=== PATIENT | female | born 1955 | race Caucasian/White ===

== ENCOUNTER 2018-07-10 23:07 | Inpatient (IN) | payer OTHER ==
[2018-07-11] MEDS: ACCU-CHEK XX ×5 (01:00→16:39)
[2018-07-11] MEDS ORDERED: ALBUTEROL/IPRATROPIUM (NEB) 3 ML AMP HHN (01:00)
[2018-07-11] MEDS ORDERED: GLUCOSE GEL 15 GRAM TUBE PO ×2 (01:00)
[2018-07-11] MEDS ORDERED: GLUCAGON 1 MG INJ IM (01:00)
[2018-07-11] MEDS ORDERED: ACETAMINOPHEN 325 MG TAB PO (01:00)
[2018-07-11] MEDS ORDERED: DEXTROSE 50% 50 ML SYRINGE IV ×2 (01:00)
[2018-07-11] MEDS ORDERED: NACL 0.9% 3 ML SYG IV (01:00)
[2018-07-11] MEDS ORDERED: GLUCOSE GEL 15 GRAM TUBE BUCCAL (01:00)
[2018-07-11] MEDS: DEXTROSE 5%-0.45% NACL 1,000 ML IV ×2 (01:12→08:32)
[2018-07-11 01:16] LABS: ADD MAN DIFF? NO
[2018-07-11 01:21] LABS: WHITE BLOOD COUNT 8.7 10^3/ul (4.8-10.8)
[2018-07-11 01:21] LABS: BASOPHILS % 0.5 % (0.0-2.0); EOSINOPHILS # 0.2 10^3/ul (0.0-0.5); EOSINOPHILS % 2.2 % (0.0-7.0); HEMATOCRIT 29.8 % (37.0-47.0); LYMPHOCYTES % 34.7 % (15.0-51.0); MEAN CORPUSCULAR HEMOGLOBIN 30.1 pg (29.0-33.0); MEAN CORPUSCULAR HGB CONC 33.6 g/dl (32.0-37.0); MEAN CORPUSCULAR VOLUME 89.8 fl (82.0-101.0); MEAN PLATELET VOLUME 10.7 fl (7.4-10.4); MONOCYTE # 0.5 10^3/ul (0.3-0.9); MONOCYTES % 6.2 % (0.0-11.0); NEUTROPHIL # 4.9 10^3/ul (1.6-7.5); NEUTROPHILS % 56.1 % (39.0-77.0); PLATELET COUNT 190 10^3/UL (140-415); RED BLOOD COUNT 3.32 10^6/ul (4.20-5.40); RED CELL DISTRIBUTION WIDTH 13.6 % (11.5-14.5)
[2018-07-11] MEDS: INSULIN ASPART [NOVOLOG] 3 ML PEN SC ×6 (01:22→22:35)
[2018-07-11 01:40] LABS: CREATINE KINASE 38 IU/L (23-200)
[2018-07-11 01:44] LABS: ALANINE AMINOTRANSFERASE 28 IU/L (13-69); ALBUMIN 3.8 g/dl (3.3-4.9); ALBUMIN/GLOBULIN RATIO 1.35; ALKALINE PHOSPHATASE 87 IU/L (42-121); ANION GAP 12 (5-13); ASPARTATE AMINO TRANSFERASE 25 IU/L (15-46); BILIRUBIN,INDIRECT 0.7 mg/dl (0-1.1); BILIRUBIN,TOTAL 0.7 mg/dl (0.2-1.3); BLOOD UREA NITROGEN 14 mg/dl (7-20); CALCIUM 9.1 mg/dl (8.4-10.2); CARBON DIOXIDE 27 mmol/L (21-31); CHLORIDE 102 mmol/L (97-110); CREATININE 0.74 mg/dl (0.44-1.00); Estimated GFR > 60 mL/min (>60); GLUCOSE 186 mg/dl (70-220); POTASSIUM 3.7 mmol/L (3.5-5.1); SODIUM 141 mmol/L (135-144); TOTAL PROTEIN 6.6 g/dl (6.1-8.1)
[2018-07-11 01:53] LABS: CK INDEX 0.7; CK-MB 0.26 ng/ml (0.0-2.4); TROPONIN-I 0.093 ng/ml (0.000-0.120)
[2018-07-11] MEDS ORDERED: ACCU-CHEK XX (02:00)
[2018-07-11 02:43] LABS: HEMOGLOBIN A1C 6.9 % (0-5.9)
[2018-07-11 06:55] LABS: CREATINE KINASE 38 IU/L (23-200)
[2018-07-11 07:07] LABS: CK INDEX 0.7; CK-MB 0.28 ng/ml (0.0-2.4); TROPONIN-I 0.084 ng/ml (0.000-0.120)
[2018-07-11] MEDS: ASPIRIN 81 MG TAB PO (08:32)
[2018-07-11] MEDS: ATENOLOL 25 MG TAB PO (08:33)
[2018-07-11] MEDS: ENOXAPARIN 40 MG/0.4 ML SYG SC (08:44)
[2018-07-11] MEDS: ATORVASTATIN 20 MG TAB PO (22:07)
[2018-07-11] MEDS: METOPROLOL 25 MG TAB PO (22:08)
[2018-07-12] MEDS: ACCU-CHEK XX (02:00)
[2018-07-12 07:40] LABS: ADD MAN DIFF? NO
[2018-07-12 07:41] LABS: WHITE BLOOD COUNT 8.2 10^3/ul (4.8-10.8)
[2018-07-12 07:41] LABS: BASOPHILS % 0.4 % (0.0-2.0); EOSINOPHILS # 0.2 10^3/ul (0.0-0.5); EOSINOPHILS % 2.4 % (0.0-7.0); HEMATOCRIT 32.4 % (37.0-47.0); LYMPHOCYTES # 2.6 10^3/ul (0.8-2.9); LYMPHOCYTES % 31.9 % (15.0-51.0); MEAN CORPUSCULAR HEMOGLOBIN 29.9 pg (29.0-33.0); MEAN PLATELET VOLUME 10.9 fl (7.4-10.4); MONOCYTE # 0.5 10^3/ul (0.3-0.9); MONOCYTES % 5.7 % (0.0-11.0); NEUTROPHIL # 4.9 10^3/ul (1.6-7.5); PLATELET COUNT 205 10^3/UL (140-415); RED BLOOD COUNT 3.68 10^6/ul (4.20-5.40); RED CELL DISTRIBUTION WIDTH 13.6 % (11.5-14.5)
[2018-07-12 08:06] LABS: ANION GAP 12 (5-13); BLOOD UREA NITROGEN 13 mg/dl (7-20); CALCIUM 9.5 mg/dl (8.4-10.2); CARBON DIOXIDE 27 mmol/L (21-31); CHLORIDE 103 mmol/L (97-110); CREATININE 0.66 mg/dl (0.44-1.00); Estimated GFR > 60 mL/min (>60); GLUCOSE 155 mg/dl (70-220); MAGNESIUM 2.1 mg/dl (1.7-2.5); PHOSPHORUS 3.9 mg/dl (2.5-4.9); SODIUM 142 mmol/L (135-144)
[2018-07-12 08:09] LABS: CHOLESTEROL 164 mg/dl (100-200)
[2018-07-12 08:09] LABS: CHOL/HDL RATIO 4.2 RATIO; HDL CHOLESTEROL 39 mg/dl (35-98); LDL CHOLESTEROL,CALCULATED 105 mg/dl; TRIGLYCERIDES 101 mg/dl (0-149)
[2018-07-12] MEDS: INSULIN ASPART [NOVOLOG] 3 ML PEN SC ×4 (08:10→21:09)
[2018-07-12] MEDS: METOPROLOL 25 MG TAB PO ×2 (08:39→21:03)
[2018-07-12] MEDS: ASPIRIN 81 MG TAB PO (08:39)
[2018-07-12] MEDS: ENOXAPARIN 40 MG/0.4 ML SYG SC (08:54)
[2018-07-12] MEDS: HYDROCODONE/APAP (5/325) TAB PO (19:52)
[2018-07-12] MEDS: ATORVASTATIN 20 MG TAB PO (21:03)
[2018-07-13] MEDS: ACCU-CHEK XX (02:00)
[2018-07-13 05:53] LABS: ADD MAN DIFF? NO
[2018-07-13 06:03] LABS: WHITE BLOOD COUNT 7.2 10^3/ul (4.8-10.8)
[2018-07-13 06:03] LABS: BASOPHILS % 0.4 % (0.0-2.0); EOSINOPHILS # 0.3 10^3/ul (0.0-0.5); EOSINOPHILS % 3.5 % (0.0-7.0); HEMATOCRIT 31.9 % (37.0-47.0); HEMOGLOBIN 10.6 g/dl (12.0-16.0); LYMPHOCYTES # 2.3 10^3/ul (0.8-2.9); LYMPHOCYTES % 31.1 % (15.0-51.0); MEAN CORPUSCULAR HEMOGLOBIN 29.8 pg (29.0-33.0); MEAN CORPUSCULAR HGB CONC 33.2 g/dl (32.0-37.0); MEAN CORPUSCULAR VOLUME 89.6 fl (82.0-101.0); MEAN PLATELET VOLUME 10.7 fl (7.4-10.4); MONOCYTE # 0.5 10^3/ul (0.3-0.9); MONOCYTES % 6.2 % (0.0-11.0); NEUTROPHIL # 4.2 10^3/ul (1.6-7.5); NEUTROPHILS % 58.4 % (39.0-77.0); PLATELET COUNT 189 10^3/UL (140-415); RED BLOOD COUNT 3.56 10^6/ul (4.20-5.40); RED CELL DISTRIBUTION WIDTH 13.3 % (11.5-14.5)
[2018-07-13 06:29] LABS: ANION GAP 11 (5-13); BLOOD UREA NITROGEN 14 mg/dl (7-20); CALCIUM 8.6 mg/dl (8.4-10.2); CARBON DIOXIDE 27 mmol/L (21-31); CHLORIDE 103 mmol/L (97-110); CREATININE 0.65 mg/dl (0.44-1.00); Estimated GFR > 60 mL/min (>60); GLUCOSE 146 mg/dl (70-220); MAGNESIUM 2.1 mg/dl (1.7-2.5); PHOSPHORUS 3.9 mg/dl (2.5-4.9); POTASSIUM 3.9 mmol/L (3.5-5.1); SODIUM 141 mmol/L (135-144)
[2018-07-13] MEDS: INSULIN ASPART [NOVOLOG] 3 ML PEN SC ×4 (07:50→21:19)
[2018-07-13] MEDS: ASPIRIN 81 MG TAB PO (08:24)
[2018-07-13] MEDS: METOPROLOL 25 MG TAB PO ×2 (08:24→20:23)
[2018-07-13] MEDS: ENOXAPARIN 40 MG/0.4 ML SYG SC (08:27)
[2018-07-13] MEDS: ATORVASTATIN 20 MG TAB PO (20:23)
[2018-07-14] MEDS: ACCU-CHEK XX (02:45)
[2018-07-14 06:24] LABS: ADD MAN DIFF? NO
[2018-07-14 06:31] LABS: WHITE BLOOD COUNT 7.6 10^3/ul (4.8-10.8)
[2018-07-14 06:31] LABS: BASOPHILS % 0.5 % (0.0-2.0); EOSINOPHILS # 0.2 10^3/ul (0.0-0.5); HEMATOCRIT 32.3 % (37.0-47.0); HEMOGLOBIN 10.7 g/dl (12.0-16.0); LYMPHOCYTES # 2.3 10^3/ul (0.8-2.9); LYMPHOCYTES % 29.6 % (15.0-51.0); MEAN CORPUSCULAR HEMOGLOBIN 29.6 pg (29.0-33.0); MEAN CORPUSCULAR HGB CONC 33.1 g/dl (32.0-37.0); MEAN CORPUSCULAR VOLUME 89.2 fl (82.0-101.0); MEAN PLATELET VOLUME 10.7 fl (7.4-10.4); MONOCYTE # 0.5 10^3/ul (0.3-0.9); NEUTROPHIL # 4.6 10^3/ul (1.6-7.5); NEUTROPHILS % 60.4 % (39.0-77.0); PLATELET COUNT 206 10^3/UL (140-415); RED BLOOD COUNT 3.62 10^6/ul (4.20-5.40); RED CELL DISTRIBUTION WIDTH 13.6 % (11.5-14.5)
[2018-07-14 07:01] LABS: ANION GAP 11 (5-13); BLOOD UREA NITROGEN 14 mg/dl (7-20); CARBON DIOXIDE 29 mmol/L (21-31); CHLORIDE 103 mmol/L (97-110); CREATININE 0.61 mg/dl (0.44-1.00); Estimated GFR > 60 mL/min (>60); GLUCOSE 160 mg/dl (70-220); MAGNESIUM 2.2 mg/dl (1.7-2.5); PHOSPHORUS 3.7 mg/dl (2.5-4.9); SODIUM 143 mmol/L (135-144)
[2018-07-14] MEDS: INSULIN ASPART [NOVOLOG] 3 ML PEN SC ×4 (08:00→21:01)
[2018-07-14] MEDS: ASPIRIN 81 MG TAB PO (08:08)
[2018-07-14] MEDS: METOPROLOL 25 MG TAB PO ×2 (08:08→20:49)
[2018-07-14] MEDS: ENOXAPARIN 40 MG/0.4 ML SYG SC (08:18)
[2018-07-14] MEDS: ATORVASTATIN 20 MG TAB PO (20:49)
[2018-07-15] MEDS: ACCU-CHEK XX ×9 (02:30→23:18)
[2018-07-15 04:26] LABS: ADD MAN DIFF? NO
[2018-07-15 04:28] LABS: WHITE BLOOD COUNT 7.7 10^3/ul (4.8-10.8)
[2018-07-15 04:28] LABS: BASOPHILS % 0.4 % (0.0-2.0); EOSINOPHILS # 0.2 10^3/ul (0.0-0.5); HEMATOCRIT 33.3 % (37.0-47.0); LYMPHOCYTES # 2.4 10^3/ul (0.8-2.9); LYMPHOCYTES % 30.7 % (15.0-51.0); MEAN CORPUSCULAR HEMOGLOBIN 29.6 pg (29.0-33.0); MEAN CORPUSCULAR VOLUME 89.5 fl (82.0-101.0); MEAN PLATELET VOLUME 10.3 fl (7.4-10.4); MONOCYTE # 0.5 10^3/ul (0.3-0.9); NEUTROPHIL # 4.6 10^3/ul (1.6-7.5); NEUTROPHILS % 59.5 % (39.0-77.0); PLATELET COUNT 217 10^3/UL (140-415); RED BLOOD COUNT 3.72 10^6/ul (4.20-5.40); RED CELL DISTRIBUTION WIDTH 13.6 % (11.5-14.5)
[2018-07-15 04:30] LABS: PLATELET COUNT 212 10^3/UL (140-415)
[2018-07-15 04:45] LABS: ANION GAP 10 (5-13); BLOOD UREA NITROGEN 15 mg/dl (7-20); CALCIUM 9.6 mg/dl (8.4-10.2); CARBON DIOXIDE 26 mmol/L (21-31); CHLORIDE 105 mmol/L (97-110); CREATININE 0.61 mg/dl (0.44-1.00); Estimated GFR > 60 mL/min (>60); GLUCOSE 164 mg/dl (70-220); PHOSPHORUS 4.1 mg/dl (2.5-4.9); SODIUM 141 mmol/L (135-144)
[2018-07-15 04:55] LABS: INR 0.92; PROTIME 12.5 Sec (11.9-14.9)
[2018-07-15 04:56] LABS: PARTIAL THROMBOPLASTIN TIME 31.2 Sec (23.0-35.0)
[2018-07-15 04:59] LABS: THROMBIN TIME 16.9 SEC (13.8-19.1)
[2018-07-15] MEDS ORDERED: EPINEPHrine 4 MG in DEXTROSE 5% 246 ML IV (07:00)
[2018-07-15] MEDS ORDERED: INSULIN HUMAN REGULAR 100 UNIT in SOD CHLORIDE 0.9% 99 ML IV (07:00)
[2018-07-15] MEDS ORDERED: NITROGLYCERIN 50 MG/D5W 250 ML BTL (07:00)
[2018-07-15] MEDS ORDERED: DOPamine-D5W 1.6 MG/ML 250 ML (07:00)
[2018-07-15] MEDS ORDERED: ISOFLURANE 15 MIN (07:00)
[2018-07-15] MEDS ORDERED: PHENYLephrine 20MG IN 250 ML 250 ML IV (07:30)
[2018-07-15] MEDS ORDERED: MIDAZOLAM 5 ML ×2 (07:41→13:13)
[2018-07-15] MEDS: VANCOMYCIN 1 GM INJ (07:41)
[2018-07-15] MEDS ORDERED: PHENYLephrine (100 MCG/ML) 5ML SYG ×3 (07:44→09:57)
[2018-07-15] MEDS ORDERED: MAGNESIUM SULFATE (MG) 50% 10 ML INJ (07:47)
[2018-07-15] MEDS: HEPARIN 1000 UNITS/ML 10 ML INJ (07:47)
[2018-07-15] MEDS: PAPAVERINE 60 MG INJ (07:47)
[2018-07-15] MEDS ORDERED: POTASSIUM CHLORIDE 40 MEQ INJ (07:47)
[2018-07-15] MEDS ORDERED: LIDOCAINE 100 MG SYRINGE (07:47)
[2018-07-15] MEDS ORDERED: ALBUMIN HUMAN 25% 200 ML (07:48)
[2018-07-15] MEDS ORDERED: AMINOCAPROIC ACID 5 GM INJ (07:48)
[2018-07-15] MEDS ORDERED: CA CHLORIDE 10% 10 ML SYRINGE (07:48)
[2018-07-15] MEDS ORDERED: FUROSEMIDE 20 MG INJ ×2 (07:48→12:12)
[2018-07-15] MEDS ORDERED: MANNITOL 20% 500 ML (07:48)
[2018-07-15] MEDS ORDERED: NA BICARBONATE 8.4% 50 ML SYG (07:49)
[2018-07-15] MEDS ORDERED: PHENYLephrine 10 MG INJ (07:49)
[2018-07-15] MEDS: INSULIN ASPART [NOVOLOG] 3 ML PEN SC ×2 (07:55→11:50)
[2018-07-15] MEDS ORDERED: CEFAZOLIN 1 GM INJ ×2 (08:31→11:15)
[2018-07-15] MEDS ORDERED: HEPARIN 1000 UNITS/ML 10 ML INJ ×2 (08:42→09:11)
[2018-07-15] MEDS: ENOXAPARIN 40 MG/0.4 ML SYG SC (09:00)
[2018-07-15] MEDS: METOPROLOL 25 MG TAB PO ×2 (09:00→21:00)
[2018-07-15] MEDS: ASPIRIN 81 MG TAB PO (09:00)
[2018-07-15] MEDS ORDERED: ALBUMIN HUMAN 5% 0 ML (09:43)
[2018-07-15] MEDS ORDERED: POTASSIUM CHLORIDE 100 ML (09:43)
[2018-07-15] MEDS ORDERED: PROTAMINE 250 MG INJ (11:19)
[2018-07-15 11:42] LABS: IMMEDIATE SPIN CROSSMATCH 1 6
[2018-07-15 11:42] LABS: TYPE AND SCREEN 1
[2018-07-15 11:55] LABS: IMMEDIATE SPIN CROSSMATCH 1
[2018-07-15] MEDS ORDERED: hydrALAzine 20 MG INJ ×2 (12:21→13:48)
[2018-07-15] MEDS ORDERED: LIDOCAINE 2% (SDV) 5 ML INJ (12:29)
[2018-07-15] MEDS ORDERED: ROCURONIUM 50 MG INJ (12:29)
[2018-07-15] MEDS ORDERED: ETOMIDATE 20 MG INJ (12:29)
[2018-07-15] MEDS: NITROGLYCERIN 50 MG/D5W (PMX) 250 ML IV ×3 (14:00→20:25)
[2018-07-15] MEDS ORDERED: DOPamine-D5W 1.6 MG/ML 250 ML IV (14:00)
[2018-07-15] MEDS ORDERED: morphine 10 MG INJ IV ×2 (14:00→14:30)
[2018-07-15] MEDS ORDERED: MEPERIDINE 25 MG INJ IV (14:00)
[2018-07-15] MEDS ORDERED: ONDANSETRON 4 MG INJ IV ×2 (14:00→14:30)
[2018-07-15] MEDS ORDERED: morphine (1 MG/ML) 10ML SYRINGE IV (14:00)
[2018-07-15] MEDS ORDERED: MIDAZOLAM 1 MG/ML 2 ML INJ IV (14:00)
[2018-07-15] MEDS ORDERED: LABETALOL HCL 20MG INJ IV (14:00)
[2018-07-15] MEDS ORDERED: METOCLOPRAMIDE 10 MG INJ IV (14:00)
[2018-07-15] MEDS ORDERED: DIPHENHYDRAMINE 50 MG INJ IV (14:00)
[2018-07-15] MEDS ORDERED: morphine 4 MG/ML VIAL (14:04)
[2018-07-15] MEDS ORDERED: HYDROmorphONE 0.5 MG/0.5 ML SYG IV (14:30)
[2018-07-15] MEDS ORDERED: OXYCODONE/ACETAMINOPHEN (5/325) TAB PO ×2 (14:30)
[2018-07-15] MEDS ORDERED: MAGNESIUM SULFATE 1 GM/D5W 100 ML IVPB (14:30)
[2018-07-15 14:39] LABS: ADD MAN DIFF? NO
[2018-07-15 14:46] LABS: AADO2 Arterial 289.9 mmHg (7.0-24.0); Arterial Base Excess -1.7 mmol/L (-3.0-3); Arterial Blood Gas Oxygen Sat 96.7 mmHG (95.0-98.0); Arterial COHb 0.3 % (0.0-3.0); Arterial HCO3 23.4 mmol/L (22.0-26.0); Arterial MetHb 0.4 % (0.0-1.5); Arterial pCO2 41.1 mmhg (35-45); MODE VENT - AC; Site A-Line
[2018-07-15 14:50] LABS: BASOPHILS % 0.2 % (0.0-2.0); EOSINOPHILS # 0.1 10^3/ul (0.0-0.5); EOSINOPHILS % 0.8 % (0.0-7.0); HEMATOCRIT 35.5 % (37.0-47.0); LYMPHOCYTES # 2.5 10^3/ul (0.8-2.9); LYMPHOCYTES % 25.3 % (15.0-51.0); MEAN CORPUSCULAR HEMOGLOBIN 29.6 pg (29.0-33.0); MEAN CORPUSCULAR HGB CONC 33.8 g/dl (32.0-37.0); MEAN CORPUSCULAR VOLUME 87.7 fl (82.0-101.0); MEAN PLATELET VOLUME 10.5 fl (7.4-10.4); MONOCYTE # 0.6 10^3/ul (0.3-0.9); MONOCYTES % 5.9 % (0.0-11.0); NEUTROPHIL # 6.7 10^3/ul (1.6-7.5); NEUTROPHILS % 66.5 % (39.0-77.0); PLATELET COUNT 147 10^3/UL (140-415); RED BLOOD COUNT 4.05 10^6/ul (4.20-5.40); RED CELL DISTRIBUTION WIDTH 13.8 % (11.5-14.5)
[2018-07-15 14:50] LABS: WHITE BLOOD COUNT 10.1 10^3/ul (4.8-10.8)
[2018-07-15 14:52] LABS: MODE VENT - AC; MetHgb Mixed Venous 0.5 %; Mixed Venous COHb 0.4 %; Mixed Venous Fraction OxyHgb 82.2 %; Mixed Venous Oxygen Sat 82.9 mmHG (65.0-75.0); Mixed Venous Total Hemglobin 13.1 g/dl; Sample Type BLMV; Site OTHER
[2018-07-15 15:03] LABS: INR 1.17; PT RATIO 1.2
[2018-07-15] MEDS: morphine 4 MG/ML VIAL IV (15:03)
[2018-07-15 15:04] LABS: PARTIAL THROMBOPLASTIN TIME 28.9 Sec (23.0-35.0)
[2018-07-15] MEDS: morphine (1 MG/ML) 10ML SYRINGE IV ×2 (15:07→17:10)
[2018-07-15 15:12] LABS: ANION GAP 13 (5-13); BLOOD UREA NITROGEN 12 mg/dl (7-20); CALCIUM 9.1 mg/dl (8.4-10.2); CARBON DIOXIDE 22 mmol/L (21-31); CHLORIDE 111 mmol/L (97-110); CREATININE 0.68 mg/dl (0.44-1.00); Estimated GFR > 60 mL/min (>60); GLUCOSE 176 mg/dl (70-220); MAGNESIUM 3.4 mg/dl (1.7-2.5); POTASSIUM 3.2 mmol/L (3.5-5.1); SODIUM 146 mmol/L (135-144)
[2018-07-15] MEDS: HYDROmorphONE 0.5 MG/0.5 ML SYG IV ×3 (15:28→20:20)
[2018-07-15] MEDS: POTASSIUM CHLORIDE 50 ML IVPB ×5 (15:33→23:38)
[2018-07-15] MEDS ORDERED: DEXTROSE 50% 50 ML SYRINGE IV ×2 (16:00)
[2018-07-15] MEDS: INSULIN HUMAN REGULAR 100 UNIT in SOD CHLORIDE 0.9% 99 ML IV (16:12)
[2018-07-15] MEDS: hydrALAzine 20 MG INJ IV (16:34)
[2018-07-15] MEDS: POTASSIUM CHLORIDE 40 MEQ, CALCIUM CHLORIDE 10% 1 GM in DEXTROSE 5%-0.225% NACL 1,000 ML IV (17:50)
[2018-07-15] MEDS: FAMOTIDINE 20 MG INJ IV (20:01)
[2018-07-15] MEDS: ATORVASTATIN 40 MG TAB PO (21:00)
[2018-07-15 21:31] LABS: AADO2 Arterial 81.6 mmHg (7.0-24.0); Arterial Base Excess -2.9 mmol/L (-3.0-3); Arterial Blood Gas Oxygen Sat 95.9 mmHG (95.0-98.0); Arterial COHb 0.3 % (0.0-3.0); Arterial Fraction of Oxyhgb 95.1 % (93.0-99.0); Arterial HCO3 21.9 mmol/L (22.0-26.0); Arterial MetHb 0.5 % (0.0-1.5); Arterial pCO2 38.3 mmhg (35-45); Blood Gas PS 10; MODE VENT - CPAP; Site A-Line
[2018-07-15 21:50] LABS: PHOSPHORUS 1.6 mg/dl (2.5-4.9)
[2018-07-15 21:50] LABS: ANION GAP 9 (5-13); BLOOD UREA NITROGEN 14 mg/dl (7-20); CALCIUM 9.2 mg/dl (8.4-10.2); CARBON DIOXIDE 25 mmol/L (21-31); CHLORIDE 112 mmol/L (97-110); CREATININE 0.76 mg/dl (0.44-1.00); Estimated GFR > 60 mL/min (>60); GLUCOSE 216 mg/dl (70-220); MAGNESIUM 2.8 mg/dl (1.7-2.5); POTASSIUM 3.6 mmol/L (3.5-5.1); SODIUM 146 mmol/L (135-144)
[2018-07-15] MEDS ORDERED: ACETAMINOPHEN 650 MG SUPP PR (23:23)
[2018-07-15] MEDS: ACETAMINOPHEN 650 MG SUPP PR (23:25)
[2018-07-15 23:35] LABS: ADD UMIC YES; UR ASCORBIC ACID NEGATIVE (NEGATIVE); UR BILIRUBIN (Dip) NEGATIVE (NEGATIVE); UR BLOOD (Dip) 1+ mg/dL (NEGATIVE); UR CLARITY CLEAR (CLEAR); UR COLOR YELLOW (YELLOW); UR GLUCOSE (Dip) NEGATIVE (NEGATIVE); UR KETONES (Dip) NEGATIVE (NEGATIVE); UR LEUKOCYTE ESTERASE (Dip) TRACE Leu/ul (NEGATIVE); UR MUCUS FEW /HPF (NONE SEEN); UR NITRITE (Dip) NEGATIVE (NEGATIVE); UR RBC 2 /HPF (0-5); UR SPECIFIC GRAVITY (Dip) 1.019 (1.003-1.030); UR TOTAL PROTEIN (Dip) NEGATIVE (NEGATIVE); UR UROBILINOGEN (Dip) NEGATIVE (NEGATIVE); UR WBC 21 /HPF (0-5)
[2018-07-15 23:46] LABS: LACTIC ACID 2.3 mmol/L (0.5-2.0)
[2018-07-16] MEDS: ACCU-CHEK XX ×25 (00:08→23:13)
[2018-07-16] MEDS ORDERED: VANCOMYCIN IV PER PHARMACY XX (01:00)
[2018-07-16] MEDS: POTASSIUM CHLORIDE 50 ML IVPB (01:18)
[2018-07-16] MEDS: PIPER-TAZO 3.375 GM IV (PMX) 100 ML IVPB ×5 (01:25→23:25)
[2018-07-16] MEDS: INSULIN HUMAN REGULAR 100 UNIT in SOD CHLORIDE 0.9% 99 ML IV ×3 (03:59→20:19)
[2018-07-16] MEDS: VANCOMYCIN 1.5 GM in SOD CHLORIDE 0.9% 250 ML IVPB (04:03)
[2018-07-16] MEDS: ONDANSETRON 4 MG INJ IV ×3 (04:38→15:48)
[2018-07-16] MEDS: HYDROmorphONE 0.5 MG/0.5 ML SYG IV ×4 (04:39→18:45)
[2018-07-16 05:14] LABS: ADD MAN DIFF? NO
[2018-07-16 05:15] LABS: WHITE BLOOD COUNT 10.7 10^3/ul (4.8-10.8)
[2018-07-16 05:15] LABS: BASOPHILS % 0.3 % (0.0-2.0); EOSINOPHILS % 0.1 % (0.0-7.0); HEMATOCRIT 32.5 % (37.0-47.0); HEMOGLOBIN 10.9 g/dl (12.0-16.0); LYMPHOCYTES # 0.7 10^3/ul (0.8-2.9); LYMPHOCYTES % 6.4 % (15.0-51.0); MEAN CORPUSCULAR HEMOGLOBIN 29.9 pg (29.0-33.0); MEAN CORPUSCULAR HGB CONC 33.5 g/dl (32.0-37.0); MEAN CORPUSCULAR VOLUME 89.3 fl (82.0-101.0); MEAN PLATELET VOLUME 10.8 fl (7.4-10.4); MONOCYTES % 9.5 % (0.0-11.0); NEUTROPHIL # 8.9 10^3/ul (1.6-7.5); PLATELET COUNT 195 10^3/UL (140-415); RED BLOOD COUNT 3.64 10^6/ul (4.20-5.40); RED CELL DISTRIBUTION WIDTH 14.8 % (11.5-14.5)
[2018-07-16 05:39] LABS: LACTIC ACID 1.7 mmol/L (0.5-2.0)
[2018-07-16] MEDS: NITROGLYCERIN 50 MG/D5W (PMX) 250 ML IV (05:49)
[2018-07-16 05:50] LABS: ANION GAP 11 (5-13); BLOOD UREA NITROGEN 13 mg/dl (7-20); CALCIUM 9.5 mg/dl (8.4-10.2); CARBON DIOXIDE 26 mmol/L (21-31); CHLORIDE 112 mmol/L (97-110); CREATININE 0.78 mg/dl (0.44-1.00); Estimated GFR > 60 mL/min (>60); GLUCOSE 155 mg/dl (70-220); MAGNESIUM 2.4 mg/dl (1.7-2.5); POTASSIUM 5.1 mmol/L (3.5-5.1); SODIUM 149 mmol/L (135-144)
[2018-07-16 05:53] LABS: INR 1.03; PROTIME 13.6 Sec (11.9-14.9); PT RATIO 1.1
[2018-07-16] MEDS: FAMOTIDINE 20 MG INJ IV ×2 (08:22→20:17)
[2018-07-16] MEDS: ASPIRIN 325 MG TAB PO (08:44)
[2018-07-16] MEDS: METOPROLOL 25 MG TAB PO ×3 (08:45→21:14)
[2018-07-16] MEDS: ENOXAPARIN 40 MG/0.4 ML SYG SC (09:54)
[2018-07-16] MEDS: HYDROCODONE/APAP (5/325) TAB PO (10:30)
[2018-07-16] MEDS: POTASSIUM CHLORIDE 40 MEQ, CALCIUM CHLORIDE 10% 1 GM in DEXTROSE 5%-0.225% NACL 1,000 ML IV (12:28)
[2018-07-16 14:18] LABS: HEMATOCRIT 30.5 % (37.0-47.0)
[2018-07-16] MEDS: FUROSEMIDE 20 MG INJ IV (14:52)
[2018-07-16] MEDS: LORAZEPAM 2 MG INJ IV (15:00)
[2018-07-16] MEDS: VANCOMYCIN 750 MG (PMX) 250 ML IVPB (16:29)
[2018-07-16] MEDS: LORAZEPAM 4 MG/ML VIAL IV (16:45)
[2018-07-16] MEDS: ATORVASTATIN 40 MG TAB PO (21:14)
[2018-07-17] MEDS: ACCU-CHEK XX ×16 (00:35→14:15)
[2018-07-17] MEDS: HYDROmorphONE 0.5 MG/0.5 ML SYG IV ×3 (00:35→20:00)
[2018-07-17] MEDS: ALBUMIN HUMAN 5% 250 ML IV (02:35)
[2018-07-17] MEDS: POTASSIUM CHLORIDE 40 MEQ, CALCIUM CHLORIDE 10% 1 GM in DEXTROSE 5%-0.225% NACL 1,000 ML IV ×2 (02:37→13:28)
[2018-07-17] MEDS: VANCOMYCIN 750 MG (PMX) 250 ML IVPB ×2 (04:14→17:02)
[2018-07-17 05:09] LABS: ADD MAN DIFF? NO
[2018-07-17 05:18] LABS: WHITE BLOOD COUNT 12.6 10^3/ul (4.8-10.8)
[2018-07-17 05:18] LABS: BASOPHILS % 0.2 % (0.0-2.0); EOSINOPHILS % 0.1 % (0.0-7.0); HEMATOCRIT 29.5 % (37.0-47.0); HEMOGLOBIN 9.7 g/dl (12.0-16.0); LYMPHOCYTES # 1.5 10^3/ul (0.8-2.9); LYMPHOCYTES % 12.2 % (15.0-51.0); MEAN CORPUSCULAR HGB CONC 32.9 g/dl (32.0-37.0); MEAN CORPUSCULAR VOLUME 91.3 fl (82.0-101.0); MONOCYTE # 1.1 10^3/ul (0.3-0.9); MONOCYTES % 8.7 % (0.0-11.0); NEUTROPHIL # 9.9 10^3/ul (1.6-7.5); NEUTROPHILS % 78.2 % (39.0-77.0); PLATELET COUNT 179 10^3/UL (140-415); RED BLOOD COUNT 3.23 10^6/ul (4.20-5.40); RED CELL DISTRIBUTION WIDTH 15.5 % (11.5-14.5)
[2018-07-17 05:32] LABS: ANION GAP 7 (5-13); BLOOD UREA NITROGEN 17 mg/dl (7-20); CALCIUM 9.6 mg/dl (8.4-10.2); CARBON DIOXIDE 27 mmol/L (21-31); CHLORIDE 108 mmol/L (97-110); CREATININE 0.86 mg/dl (0.44-1.00); GLUCOSE 129 mg/dl (70-220); MAGNESIUM 2.2 mg/dl (1.7-2.5); PHOSPHORUS 5.4 mg/dl (2.5-4.9); POTASSIUM 4.3 mmol/L (3.5-5.1); SODIUM 142 mmol/L (135-144)
[2018-07-17] MEDS: PIPER-TAZO 3.375 GM IV (PMX) 100 ML IVPB ×3 (05:55→18:57)
[2018-07-17] MEDS: METOPROLOL 25 MG TAB PO ×2 (05:56→14:16)
[2018-07-17] MEDS: FAMOTIDINE 20 MG INJ IV ×2 (08:22→21:08)
[2018-07-17] MEDS: ASPIRIN 81 MG TAB PO (10:15)
[2018-07-17] MEDS: ENOXAPARIN 40 MG/0.4 ML SYG SC (10:18)
[2018-07-17 15:38] LABS: VANCOMYCIN,TROUGH 12.3 ug/ml (10.0-20.0)
[2018-07-17] MEDS: INSULIN GLARGINE [LANTus] (100 UNITS/ML) SYG SC (16:39)
[2018-07-17] MEDS: INSULIN ASPART [NOVOLOG] 3 ML PEN SC ×2 (17:03→21:00)
[2018-07-17] MEDS: ONDANSETRON 4 MG INJ IV (19:52)
[2018-07-17] MEDS: FUROSEMIDE 20 MG INJ IV (22:27)
[2018-07-17] MEDS: ATORVASTATIN 40 MG TAB PO (22:36)
[2018-07-17] MEDS: METOPROLOL 50 MG TAB PO (22:39)
[2018-07-18] MEDS: PIPER-TAZO 3.375 GM IV (PMX) 100 ML IVPB ×5 (00:21→23:07)
[2018-07-18] MEDS: LORAZEPAM 2 MG INJ IV (02:13)
[2018-07-18] MEDS: LORAZEPAM 4 MG/ML VIAL IV ×2 (02:49→06:39)
[2018-07-18] MEDS: VANCOMYCIN 750 MG (PMX) 250 ML IVPB ×2 (04:07→17:15)
[2018-07-18] MEDS: FUROSEMIDE 20 MG INJ IV ×2 (05:54→14:36)
[2018-07-18] MEDS: METOPROLOL 50 MG TAB PO ×3 (05:55→21:35)
[2018-07-18] MEDS ORDERED: LORAZEPAM 4 MG/ML VIAL IM (06:30)
[2018-07-18] MEDS: INSULIN ASPART [NOVOLOG] 3 ML PEN SC ×4 (08:08→21:30)
[2018-07-18] MEDS: ASPIRIN 81 MG TAB PO (08:14)
[2018-07-18] MEDS: ENOXAPARIN 40 MG/0.4 ML SYG SC (08:19)
[2018-07-18] MEDS: FAMOTIDINE 20 MG INJ IV ×2 (08:39→23:07)
[2018-07-18] MEDS: HYDROmorphONE 0.5 MG/0.5 ML SYG IV (08:40)
[2018-07-18 09:38] LABS: ADD MAN DIFF? NO
[2018-07-18 09:47] LABS: BASOPHILS % 0.3 % (0.0-2.0); EOSINOPHILS % 0.1 % (0.0-7.0); HEMATOCRIT 28.2 % (37.0-47.0); HEMOGLOBIN 9.1 g/dl (12.0-16.0); LYMPHOCYTES # 1.4 10^3/ul (0.8-2.9); LYMPHOCYTES % 13.6 % (15.0-51.0); MEAN CORPUSCULAR HEMOGLOBIN 29.4 pg (29.0-33.0); MEAN CORPUSCULAR HGB CONC 32.3 g/dl (32.0-37.0); MEAN PLATELET VOLUME 10.2 fl (7.4-10.4); MONOCYTE # 0.8 10^3/ul (0.3-0.9); MONOCYTES % 7.8 % (0.0-11.0); NEUTROPHIL # 8.2 10^3/ul (1.6-7.5); NEUTROPHILS % 77.4 % (39.0-77.0); PLATELET COUNT 162 10^3/UL (140-415); RED CELL DISTRIBUTION WIDTH 14.6 % (11.5-14.5)
[2018-07-18 09:47] LABS: WHITE BLOOD COUNT 10.6 10^3/ul (4.8-10.8)
[2018-07-18 10:07] LABS: ALBUMIN 3.6 g/dl (3.3-4.9); ANION GAP 10 (5-13); BLOOD UREA NITROGEN 20 mg/dl (7-20); CALCIUM 9.5 mg/dl (8.4-10.2); CARBON DIOXIDE 26 mmol/L (21-31); CHLORIDE 106 mmol/L (97-110); CREATININE 0.93 mg/dl (0.44-1.00); GLUCOSE 184 mg/dl (70-220); MAGNESIUM 1.9 mg/dl (1.7-2.5); PHOSPHORUS 5.1 mg/dl (2.5-4.9); POTASSIUM 3.4 mmol/L (3.5-5.1); SODIUM 142 mmol/L (135-144)
[2018-07-18] MEDS: ACETAMINOPHEN 650MG/20.3ML CUP NGT ×2 (14:40→20:16)
[2018-07-18] MEDS: POTASSIUM CHLORIDE 40 MEQ, CALCIUM CHLORIDE 10% 1 GM in DEXTROSE 5%-0.225% NACL 1,000 ML IV (14:51)
[2018-07-18] MEDS: POTASSIUM CHLORIDE 50 ML IVPB (15:57)
[2018-07-18] MEDS: FUROSEMIDE 40 MG INJ IV (18:08)
[2018-07-18] MEDS: MAGNESIUM SULFATE 1 GM/D5W 100 ML IVPB (20:50)
[2018-07-18] MEDS: INSULIN GLARGINE [LANTus] (100 UNITS/ML) SYG SC (21:30)
[2018-07-18] MEDS: ATORVASTATIN 40 MG TAB PO (21:35)
[2018-07-18] MEDS: QUETIAPINE 25 MG TAB PO (21:36)
[2018-07-19] MEDS: POTASSIUM CHLORIDE 50 ML IVPB ×3 (00:11→06:25)
[2018-07-19] MEDS: VANCOMYCIN 750 MG (PMX) 250 ML IVPB (03:17)
[2018-07-19 04:57] LABS: ADD MAN DIFF? NO
[2018-07-19 05:00] LABS: BASOPHILS % 0.5 % (0.0-2.0); EOSINOPHILS # 0.1 10^3/ul (0.0-0.5); EOSINOPHILS % 0.8 % (0.0-7.0); HEMATOCRIT 28.2 % (37.0-47.0); HEMOGLOBIN 9.3 g/dl (12.0-16.0); LYMPHOCYTES # 1.8 10^3/ul (0.8-2.9); MEAN CORPUSCULAR HEMOGLOBIN 29.5 pg (29.0-33.0); MEAN CORPUSCULAR VOLUME 89.5 fl (82.0-101.0); MEAN PLATELET VOLUME 10.6 fl (7.4-10.4); MONOCYTE # 0.8 10^3/ul (0.3-0.9); MONOCYTES % 8.5 % (0.0-11.0); NEUTROPHIL # 6.1 10^3/ul (1.6-7.5); NEUTROPHILS % 69.6 % (39.0-77.0); PLATELET COUNT 185 10^3/UL (140-415); RED BLOOD COUNT 3.15 10^6/ul (4.20-5.40); RED CELL DISTRIBUTION WIDTH 14.3 % (11.5-14.5)
[2018-07-19 05:00] LABS: WHITE BLOOD COUNT 8.8 10^3/ul (4.8-10.8)
[2018-07-19 05:21] LABS: MAGNESIUM 2.2 mg/dl (1.7-2.5)
[2018-07-19 05:26] LABS: ALBUMIN 3.3 g/dl (3.3-4.9); ANION GAP 12 (5-13); BLOOD UREA NITROGEN 18 mg/dl (7-20); CALCIUM 9.4 mg/dl (8.4-10.2); CARBON DIOXIDE 29 mmol/L (21-31); CHLORIDE 104 mmol/L (97-110); CREATININE 0.84 mg/dl (0.44-1.00); GLUCOSE 150 mg/dl (70-220); PHOSPHORUS 4.4 mg/dl (2.5-4.9); POTASSIUM 3.4 mmol/L (3.5-5.1); SODIUM 145 mmol/L (135-144)
[2018-07-19] MEDS: FUROSEMIDE 40 MG INJ IV ×2 (05:45→17:29)
[2018-07-19] MEDS: PIPER-TAZO 3.375 GM IV (PMX) 100 ML IVPB ×3 (05:45→17:29)
[2018-07-19] MEDS: METOPROLOL 50 MG TAB PO ×3 (05:46→22:51)
[2018-07-19] MEDS: FAMOTIDINE 20 MG INJ IV ×2 (09:24→21:25)
[2018-07-19] MEDS: POTASSIUM CHLORIDE (SR) 20 MEQ TAB PO ×2 (09:24→23:51)
[2018-07-19] MEDS: ASPIRIN 81 MG TAB PO (09:25)
[2018-07-19] MEDS: INSULIN ASPART [NOVOLOG] 3 ML PEN SC ×4 (09:26→21:32)
[2018-07-19] MEDS: ENOXAPARIN 40 MG/0.4 ML SYG SC (09:26)
[2018-07-19] MEDS ORDERED: hydrOXYzine HCL 10 MG TAB PO (09:30)
[2018-07-19] MEDS ORDERED: morphine 2 MG INJ IV (09:30)
[2018-07-19] MEDS: traMADol 50 MG TAB PO (10:33)
[2018-07-19] MEDS: QUETIAPINE 25 MG TAB PO ×2 (21:00→21:25)
[2018-07-19] MEDS: ATORVASTATIN 40 MG TAB PO (21:25)
[2018-07-19] MEDS: INSULIN GLARGINE [LANTus] (100 UNITS/ML) SYG SC (21:27)
[2018-07-19] MEDS: ACETAMINOPHEN 325 MG TAB PO (21:42)
[2018-07-19] MEDS ORDERED: AMIODARONE 900 MG in DEXTROSE 5% 482 ML IV (23:30)
[2018-07-19] MEDS ORDERED: AMIODARONE 150MG/D5W BOLUS 100 ML IV (23:30)
[2018-07-20] MEDS: PIPER-TAZO 3.375 GM IV (PMX) 100 ML IVPB ×5 (00:02→23:25)
[2018-07-20] MEDS: AMIODARONE 200 MG TAB PO ×4 (00:03→20:53)
[2018-07-20] MEDS: FUROSEMIDE 40 MG INJ IV ×2 (05:50→17:02)
[2018-07-20] MEDS: METOPROLOL 50 MG TAB PO ×3 (05:51→23:26)
[2018-07-20 06:06] LABS: ADD MAN DIFF? NO
[2018-07-20 06:16] LABS: WHITE BLOOD COUNT 8.5 10^3/ul (4.8-10.8)
[2018-07-20 06:16] LABS: BASOPHIL # 0.1 10^3/ul (0.0-0.1); BASOPHILS % 0.7 % (0.0-2.0); EOSINOPHILS # 0.2 10^3/ul (0.0-0.5); HEMATOCRIT 29.7 % (37.0-47.0); HEMOGLOBIN 9.8 g/dl (12.0-16.0); LYMPHOCYTES # 2.3 10^3/ul (0.8-2.9); LYMPHOCYTES % 27.2 % (15.0-51.0); MEAN CORPUSCULAR HEMOGLOBIN 29.6 pg (29.0-33.0); MEAN CORPUSCULAR VOLUME 89.7 fl (82.0-101.0); MEAN PLATELET VOLUME 10.8 fl (7.4-10.4); MONOCYTE # 0.9 10^3/ul (0.3-0.9); MONOCYTES % 10.2 % (0.0-11.0); NEUTROPHIL # 5.1 10^3/ul (1.6-7.5); NEUTROPHILS % 59.5 % (39.0-77.0); PLATELET COUNT 236 10^3/UL (140-415); RED BLOOD COUNT 3.31 10^6/ul (4.20-5.40)
[2018-07-20 06:45] LABS: ALBUMIN 3.6 g/dl (3.3-4.9); ANION GAP 10 (5-13); BLOOD UREA NITROGEN 17 mg/dl (7-20); CALCIUM 9.3 mg/dl (8.4-10.2); CARBON DIOXIDE 34 mmol/L (21-31); CHLORIDE 99 mmol/L (97-110); CREATININE 0.92 mg/dl (0.44-1.00); GLUCOSE 119 mg/dl (70-220); MAGNESIUM 1.9 mg/dl (1.7-2.5); PHOSPHORUS 4.9 mg/dl (2.5-4.9); POTASSIUM 3.7 mmol/L (3.5-5.1); SODIUM 143 mmol/L (135-144)
[2018-07-20] MEDS: INSULIN ASPART [NOVOLOG] 3 ML PEN SC ×4 (08:00→20:53)
[2018-07-20] MEDS: FAMOTIDINE 20 MG INJ IV ×2 (08:52→20:52)
[2018-07-20] MEDS: ASPIRIN 81 MG TAB PO (08:53)
[2018-07-20] MEDS: POTASSIUM CHLORIDE (SR) 20 MEQ TAB PO ×2 (08:53→11:39)
[2018-07-20] MEDS: ENOXAPARIN 40 MG/0.4 ML SYG SC (09:02)
[2018-07-20] MEDS: MEGESTROL 40 MG TAB PO ×4 (12:19→20:52)
[2018-07-20] MEDS: MAGNESIUM SULFATE 1 GM/D5W 100 ML IVPB (12:20)
[2018-07-20] MEDS: ACETAMINOPHEN 325 MG TAB PO ×2 (18:59→20:27)
[2018-07-20] MEDS: ATORVASTATIN 40 MG TAB PO (20:52)
[2018-07-20] MEDS: INSULIN GLARGINE [LANTus] (100 UNITS/ML) SYG SC (21:08)
[2018-07-21] MEDS: NITROGLYCERIN (SL) 0.4 MG TAB SL (01:19)
[2018-07-21 05:25] LABS: ADD MAN DIFF? NO
[2018-07-21] MEDS: PIPER-TAZO 3.375 GM IV (PMX) 100 ML IVPB ×4 (05:26→23:53)
[2018-07-21] MEDS: FUROSEMIDE 40 MG INJ IV (05:26)
[2018-07-21] MEDS: METOPROLOL 50 MG TAB PO ×3 (05:26→22:22)
[2018-07-21 05:33] LABS: WHITE BLOOD COUNT 9.9 10^3/ul (4.8-10.8)
[2018-07-21 05:33] LABS: BASOPHIL # 0.1 10^3/ul (0.0-0.1); BASOPHILS % 0.5 % (0.0-2.0); EOSINOPHILS # 0.2 10^3/ul (0.0-0.5); EOSINOPHILS % 1.6 % (0.0-7.0); HEMATOCRIT 33.7 % (37.0-47.0); HEMOGLOBIN 10.9 g/dl (12.0-16.0); LYMPHOCYTES # 2.5 10^3/ul (0.8-2.9); LYMPHOCYTES % 25.5 % (15.0-51.0); MEAN CORPUSCULAR HEMOGLOBIN 29.3 pg (29.0-33.0); MEAN CORPUSCULAR HGB CONC 32.3 g/dl (32.0-37.0); MEAN CORPUSCULAR VOLUME 90.6 fl (82.0-101.0); MEAN PLATELET VOLUME 10.7 fl (7.4-10.4); MONOCYTE # 0.9 10^3/ul (0.3-0.9); MONOCYTES % 9.2 % (0.0-11.0); NEUTROPHIL # 6.2 10^3/ul (1.6-7.5); NEUTROPHILS % 62.6 % (39.0-77.0); PLATELET COUNT 274 10^3/UL (140-415); RED BLOOD COUNT 3.72 10^6/ul (4.20-5.40); RED CELL DISTRIBUTION WIDTH 13.8 % (11.5-14.5)
[2018-07-21 06:00] LABS: ALBUMIN 3.8 g/dl (3.3-4.9); ANION GAP 10 (5-13); BLOOD UREA NITROGEN 19 mg/dl (7-20); CALCIUM 9.4 mg/dl (8.4-10.2); CARBON DIOXIDE 34 mmol/L (21-31); CHLORIDE 98 mmol/L (97-110); CREATININE 1.05 mg/dl (0.44-1.00); GLUCOSE 130 mg/dl (70-220); MAGNESIUM 2.3 mg/dl (1.7-2.5); PHOSPHORUS 4.6 mg/dl (2.5-4.9); POTASSIUM 3.2 mmol/L (3.5-5.1); SODIUM 142 mmol/L (135-144)
[2018-07-21 06:58] LABS: ANION GAP 11 (5-13); BLOOD UREA NITROGEN 19 mg/dl (7-20); CALCIUM 9.8 mg/dl (8.4-10.2); CARBON DIOXIDE 33 mmol/L (21-31); CHLORIDE 97 mmol/L (97-110); CREATININE 1.03 mg/dl (0.44-1.00); Estimated GFR 54 mL/min (>60); GLUCOSE 134 mg/dl (70-220); POTASSIUM 3.1 mmol/L (3.5-5.1); SODIUM 141 mmol/L (135-144)
[2018-07-21] MEDS ORDERED: POTASSIUM BICARBONATE 25 MEQ TAB PO (07:30)
[2018-07-21] MEDS: POTASSIUM CHLORIDE (SR) 20 MEQ TAB PO ×2 (07:36→14:09)
[2018-07-21] MEDS: INSULIN ASPART [NOVOLOG] 3 ML PEN SC ×4 (07:45→20:16)
[2018-07-21] MEDS: ASPIRIN 81 MG TAB PO (08:13)
[2018-07-21] MEDS: FAMOTIDINE 20 MG INJ IV ×2 (08:13→20:13)
[2018-07-21] MEDS: MEGESTROL 40 MG TAB PO ×4 (08:13→22:21)
[2018-07-21] MEDS: AMIODARONE 200 MG TAB PO ×3 (08:14→20:13)
[2018-07-21] MEDS: ENOXAPARIN 40 MG/0.4 ML SYG SC (08:34)
[2018-07-21] MEDS: D5W-0.45 NACL + KCL 20 MEQ 1,000 ML IV (09:20)
[2018-07-21] MEDS: ACETAMINOPHEN 325 MG TAB PO ×2 (10:37→22:22)
[2018-07-21] MEDS: MAGNESIUM SULFATE 2 GM/50 ML 50 ML IVPB (14:10)
[2018-07-21] MEDS: BUMETANIDE 3 MG in DEXTROSE 5% 18 ML IV (14:10)
[2018-07-21] MEDS: LACTOBACILLUS RHAMNOSUS CAP PO (19:43)
[2018-07-21] MEDS: ATORVASTATIN 40 MG TAB PO (20:08)
[2018-07-21] MEDS: INSULIN GLARGINE [LANTus] (100 UNITS/ML) SYG SC (20:23)
[2018-07-22] MEDS: traZODone 50 MG TAB PO (02:30)
[2018-07-22 05:35] LABS: ADD MAN DIFF? NO
[2018-07-22 05:44] LABS: BASOPHIL # 0.1 10^3/ul (0.0-0.1); BASOPHILS % 0.4 % (0.0-2.0); EOSINOPHILS # 0.2 10^3/ul (0.0-0.5); EOSINOPHILS % 1.4 % (0.0-7.0); HEMATOCRIT 33.9 % (37.0-47.0); HEMOGLOBIN 11.4 g/dl (12.0-16.0); LYMPHOCYTES # 2.4 10^3/ul (0.8-2.9); MEAN CORPUSCULAR HEMOGLOBIN 29.8 pg (29.0-33.0); MEAN CORPUSCULAR HGB CONC 33.6 g/dl (32.0-37.0); MEAN CORPUSCULAR VOLUME 88.5 fl (82.0-101.0); MEAN PLATELET VOLUME 10.7 fl (7.4-10.4); MONOCYTES % 7.5 % (0.0-11.0); NEUTROPHIL # 9.6 10^3/ul (1.6-7.5); NEUTROPHILS % 71.9 % (39.0-77.0); PLATELET COUNT 318 10^3/UL (140-415); RED BLOOD COUNT 3.83 10^6/ul (4.20-5.40); RED CELL DISTRIBUTION WIDTH 14.2 % (11.5-14.5)
[2018-07-22 05:44] LABS: WHITE BLOOD COUNT 13.4 10^3/ul (4.8-10.8)
[2018-07-22] MEDS: BUMETANIDE 1 MG INJ IV ×2 (05:58→17:29)
[2018-07-22] MEDS: PIPER-TAZO 3.375 GM IV (PMX) 100 ML IVPB ×4 (05:58→23:18)
[2018-07-22] MEDS: METOPROLOL 50 MG TAB PO ×3 (05:58→21:01)
[2018-07-22 06:08] LABS: ALBUMIN 3.9 g/dl (3.3-4.9); ANION GAP 14 (5-13); BLOOD UREA NITROGEN 17 mg/dl (7-20); CALCIUM 9.2 mg/dl (8.4-10.2); CARBON DIOXIDE 29 mmol/L (21-31); CHLORIDE 100 mmol/L (97-110); CREATININE 1.01 mg/dl (0.44-1.00); GLUCOSE 149 mg/dl (70-220); MAGNESIUM 2.9 mg/dl (1.7-2.5); PHOSPHORUS 3.6 mg/dl (2.5-4.9); POTASSIUM 3.5 mmol/L (3.5-5.1); SODIUM 143 mmol/L (135-144)
[2018-07-22] MEDS: INSULIN ASPART [NOVOLOG] 3 ML PEN SC ×4 (08:31→20:57)
[2018-07-22] MEDS: AMIODARONE 200 MG TAB PO ×3 (08:52→20:49)
[2018-07-22] MEDS: FAMOTIDINE 20 MG INJ IV (08:52)
[2018-07-22] MEDS: ASPIRIN 81 MG TAB PO (08:52)
[2018-07-22] MEDS: LACTOBACILLUS RHAMNOSUS CAP PO ×3 (08:52→17:29)
[2018-07-22] MEDS: MEGESTROL 40 MG TAB PO ×4 (08:52→20:49)
[2018-07-22] MEDS: ENOXAPARIN 40 MG/0.4 ML SYG SC (08:58)
[2018-07-22] MEDS: ACETAMINOPHEN 325 MG TAB PO (11:33)
[2018-07-22] MEDS: ATORVASTATIN 40 MG TAB PO (20:49)
[2018-07-22] MEDS: FAMOTIDINE 20 MG TAB PO (20:49)
[2018-07-22] MEDS: INSULIN GLARGINE [LANTus] (100 UNITS/ML) SYG SC (20:57)
[2018-07-22] MEDS: GUAIFENESIN 20 MG/ML 5ML CUP PO (22:55)
[2018-07-23] MEDS: ACETAMINOPHEN 325 MG TAB PO (00:02)
[2018-07-23] MEDS: METOPROLOL 50 MG TAB PO ×3 (05:33→20:55)
[2018-07-23] MEDS: BUMETANIDE 1 MG INJ IV (05:33)
[2018-07-23] MEDS: PIPER-TAZO 3.375 GM IV (PMX) 100 ML IVPB ×2 (05:33→11:35)
[2018-07-23 05:38] LABS: ADD MAN DIFF? NO
[2018-07-23 05:39] LABS: WHITE BLOOD COUNT 11.7 10^3/ul (4.8-10.8)
[2018-07-23 05:39] LABS: BASOPHIL # 0.1 10^3/ul (0.0-0.1); BASOPHILS % 0.4 % (0.0-2.0); EOSINOPHILS # 0.2 10^3/ul (0.0-0.5); EOSINOPHILS % 1.7 % (0.0-7.0); HEMATOCRIT 34.1 % (37.0-47.0); HEMOGLOBIN 11.2 g/dl (12.0-16.0); LYMPHOCYTES % 25.3 % (15.0-51.0); MEAN CORPUSCULAR HEMOGLOBIN 29.5 pg (29.0-33.0); MEAN CORPUSCULAR HGB CONC 32.8 g/dl (32.0-37.0); MEAN CORPUSCULAR VOLUME 89.7 fl (82.0-101.0); MEAN PLATELET VOLUME 10.6 fl (7.4-10.4); MONOCYTES % 8.2 % (0.0-11.0); NEUTROPHIL # 7.5 10^3/ul (1.6-7.5); NEUTROPHILS % 63.8 % (39.0-77.0); PLATELET COUNT 344 10^3/UL (140-415); RED CELL DISTRIBUTION WIDTH 14.2 % (11.5-14.5)
[2018-07-23 06:11] LABS: ALBUMIN 3.9 g/dl (3.3-4.9); ANION GAP 11 (5-13); BLOOD UREA NITROGEN 19 mg/dl (7-20); CALCIUM 9.1 mg/dl (8.4-10.2); CARBON DIOXIDE 27 mmol/L (21-31); CHLORIDE 103 mmol/L (97-110); GLUCOSE 137 mg/dl (70-220); MAGNESIUM 2.5 mg/dl (1.7-2.5); POTASSIUM 3.3 mmol/L (3.5-5.1); SODIUM 141 mmol/L (135-144)
[2018-07-23] MEDS: POTASSIUM CHLORIDE (SR) 20 MEQ TAB PO (07:00)
[2018-07-23] MEDS: INSULIN ASPART [NOVOLOG] 3 ML PEN SC ×4 (08:00→20:55)
[2018-07-23] MEDS: LACTOBACILLUS RHAMNOSUS CAP PO ×3 (08:54→17:18)
[2018-07-23] MEDS: FAMOTIDINE 20 MG TAB PO ×2 (08:54→20:53)
[2018-07-23] MEDS: ASPIRIN 81 MG TAB PO (08:54)
[2018-07-23] MEDS: AMIODARONE 200 MG TAB PO ×2 (08:55→13:40)
[2018-07-23] MEDS: MEGESTROL 40 MG TAB PO ×4 (08:55→20:53)
[2018-07-23] MEDS: ENOXAPARIN 40 MG/0.4 ML SYG SC (09:01)
[2018-07-23] MEDS: BUMETANIDE 1 MG TAB PO (17:18)
[2018-07-23] MEDS: INSULIN GLARGINE [LANTus] (100 UNITS/ML) SYG SC (20:51)
[2018-07-23] MEDS: POTASSIUM CHLORIDE (SR) 10 MEQ TAB PO (20:53)
[2018-07-23] MEDS: ATORVASTATIN 40 MG TAB PO (20:53)
[2018-07-23] MEDS ORDERED: METOPROLOL 50 MG TAB PO (21:00)
[2018-07-23] MEDS: traMADol 50 MG TAB PO (23:47)
[2018-07-24 05:29] LABS: ADD MAN DIFF? NO
[2018-07-24 05:38] LABS: BASOPHIL # 0.1 10^3/ul (0.0-0.1); BASOPHILS % 0.5 % (0.0-2.0); EOSINOPHILS # 0.2 10^3/ul (0.0-0.5); EOSINOPHILS % 1.7 % (0.0-7.0); HEMATOCRIT 33.2 % (37.0-47.0); HEMOGLOBIN 10.9 g/dl (12.0-16.0); LYMPHOCYTES # 3.2 10^3/ul (0.8-2.9); MEAN CORPUSCULAR HEMOGLOBIN 29.7 pg (29.0-33.0); MEAN CORPUSCULAR HGB CONC 32.8 g/dl (32.0-37.0); MEAN CORPUSCULAR VOLUME 90.5 fl (82.0-101.0); MEAN PLATELET VOLUME 10.7 fl (7.4-10.4); MONOCYTES % 8.3 % (0.0-11.0); NEUTROPHIL # 7.4 10^3/ul (1.6-7.5); NEUTROPHILS % 61.8 % (39.0-77.0); PLATELET COUNT 386 10^3/UL (140-415); RED BLOOD COUNT 3.67 10^6/ul (4.20-5.40); RED CELL DISTRIBUTION WIDTH 14.4 % (11.5-14.5)
[2018-07-24 06:06] LABS: ANION GAP 13 (5-13); BLOOD UREA NITROGEN 18 mg/dl (7-20); CARBON DIOXIDE 26 mmol/L (21-31); CHLORIDE 103 mmol/L (97-110); CREATININE 0.94 mg/dl (0.44-1.00); Estimated GFR 60 mL/min (>60); GLUCOSE 115 mg/dl (70-220); MAGNESIUM 2.2 mg/dl (1.7-2.5); PHOSPHORUS 3.4 mg/dl (2.5-4.9); POTASSIUM 3.8 mmol/L (3.5-5.1); SODIUM 142 mmol/L (135-144)
[2018-07-24] MEDS: INSULIN ASPART [NOVOLOG] 3 ML PEN SC ×4 (07:53→20:32)
[2018-07-24] MEDS: AMIODARONE 200 MG TAB PO (08:14)
[2018-07-24] MEDS: BUMETANIDE 1 MG TAB PO ×2 (08:14→17:39)
[2018-07-24] MEDS: FAMOTIDINE 20 MG TAB PO ×2 (08:14→20:27)
[2018-07-24] MEDS: ASPIRIN 81 MG TAB PO (08:15)
[2018-07-24] MEDS: LACTOBACILLUS RHAMNOSUS CAP PO ×3 (08:15→17:39)
[2018-07-24] MEDS: MEGESTROL 40 MG TAB PO ×4 (08:15→20:27)
[2018-07-24] MEDS: LISINOPRIL 5 MG TAB PO (08:15)
[2018-07-24] MEDS: METOPROLOL 50 MG TAB PO ×2 (08:16→20:28)
[2018-07-24] MEDS: ENOXAPARIN 40 MG/0.4 ML SYG SC (08:18)
[2018-07-24] MEDS: ACETAMINOPHEN 325 MG TAB PO ×2 (11:11→23:12)
[2018-07-24] MEDS: ATORVASTATIN 40 MG TAB PO (20:27)
[2018-07-24] MEDS: INSULIN GLARGINE [LANTus] (100 UNITS/ML) SYG SC (20:32)
[2018-07-25 05:39] LABS: ADD MAN DIFF? NO
[2018-07-25 05:45] LABS: BASOPHIL # 0.1 10^3/ul (0.0-0.1); BASOPHILS % 0.4 % (0.0-2.0); EOSINOPHILS # 0.2 10^3/ul (0.0-0.5); EOSINOPHILS % 1.5 % (0.0-7.0); HEMATOCRIT 35.1 % (37.0-47.0); HEMOGLOBIN 11.4 g/dl (12.0-16.0); LYMPHOCYTES # 3.3 10^3/ul (0.8-2.9); LYMPHOCYTES % 26.1 % (15.0-51.0); MEAN CORPUSCULAR HEMOGLOBIN 29.5 pg (29.0-33.0); MEAN CORPUSCULAR HGB CONC 32.5 g/dl (32.0-37.0); MEAN CORPUSCULAR VOLUME 90.7 fl (82.0-101.0); MEAN PLATELET VOLUME 10.6 fl (7.4-10.4); MONOCYTE # 0.9 10^3/ul (0.3-0.9); MONOCYTES % 7.2 % (0.0-11.0); NEUTROPHILS % 64.2 % (39.0-77.0); PLATELET COUNT 436 10^3/UL (140-415); RED BLOOD COUNT 3.87 10^6/ul (4.20-5.40); RED CELL DISTRIBUTION WIDTH 14.9 % (11.5-14.5)
[2018-07-25 05:45] LABS: WHITE BLOOD COUNT 12.5 10^3/ul (4.8-10.8)
[2018-07-25] MEDS: BUMETANIDE 1 MG TAB PO (05:53)
[2018-07-25 06:17] LABS: ANION GAP 12 (5-13); BLOOD UREA NITROGEN 21 mg/dl (7-20); CALCIUM 9.2 mg/dl (8.4-10.2); CARBON DIOXIDE 27 mmol/L (21-31); CHLORIDE 100 mmol/L (97-110); CREATININE 0.95 mg/dl (0.44-1.00); Estimated GFR 59 mL/min (>60); GLUCOSE 122 mg/dl (70-220); MAGNESIUM 2.2 mg/dl (1.7-2.5); PHOSPHORUS 3.8 mg/dl (2.5-4.9); POTASSIUM 3.5 mmol/L (3.5-5.1); SODIUM 139 mmol/L (135-144)
[2018-07-25] MEDS: LACTOBACILLUS RHAMNOSUS CAP PO ×2 (08:09→12:26)
[2018-07-25] MEDS: MEGESTROL 40 MG TAB PO ×2 (08:09→12:22)
[2018-07-25] MEDS: ACETAMINOPHEN 325 MG TAB PO (08:09)
[2018-07-25] MEDS: METOPROLOL 50 MG TAB PO (08:10)
[2018-07-25] MEDS: FAMOTIDINE 20 MG TAB PO (08:10)
[2018-07-25] MEDS: ASPIRIN 81 MG TAB PO (08:10)
[2018-07-25] MEDS: AMIODARONE 200 MG TAB PO (08:11)
[2018-07-25] MEDS: LISINOPRIL 5 MG TAB PO (08:11)
[2018-07-25] MEDS: ENOXAPARIN 40 MG/0.4 ML SYG SC (08:32)
[2018-07-25] MEDS: INSULIN ASPART [NOVOLOG] 3 ML PEN SC ×2 (08:32→12:00)
[2018-07-25] MEDS ORDERED: HYDROCODONE/APAP (5/325) TAB PO (10:00)
== END 2018-07-25 12:50 | disposition home health service (06) | DRG 235 ==
LOC: 6WM 07-19 17:14 → TEL 07-15 06:15 → ICU 07-15 13:42
PROC: 021109W Bypass Coronary Artery, Two Arteries from Aorta with Autologous Venous Tissue, Open Approach (ICD-10-PCS; principal; 2018-07-15 07:30)
PROC: 06BQ4ZZ Excision of Left Saphenous Vein, Percutaneous Endoscopic Approach (ICD-10-PCS; 2018-07-15 07:30)
PROC: 02100Z9 Bypass Coronary Artery, One Artery from Left Internal Mammary, Open Approach (ICD-10-PCS; 2018-07-15 07:30)
PROC: 5A1221Z Performance of Cardiac Output, Continuous (ICD-10-PCS; 2018-07-15 07:30)
PROC: 5A1223Z Performance of Cardiac Pacing, Continuous (ICD-10-PCS; 2018-07-15 07:30)
DX: I25.119 Atherosclerotic heart disease of native coronary artery with unspecified angina pectoris (principal); I50.33 Acute on chronic diastolic (congestive) heart failure; J18.9 Pneumonia, unspecified organism; I97.130 Postprocedural heart failure following cardiac surgery; I11.0 Hypertensive heart disease with heart failure; E11.8 Type 2 diabetes mellitus with unspecified complications; E78.5 Hyperlipidemia, unspecified; R41.0 Disorientation, unspecified; T40.605A Adverse effect of unspecified narcotics, initial encounter; I48.0 Paroxysmal atrial fibrillation; Y83.8 Other surgical procedures as the cause of abnormal reaction of the patient, or of later complication, without mention of misadventure at the time of the procedure; Y92.238 Other place in hospital as the place of occurrence of the external cause
CPT/HCPCS: 36430; 36592; 36600; 71045; 80048; 80053; 80061; 80069; 80202; 81001; 82550; 82553; 82803; 82962; 83036; 83605; 83735; 84100; 84443; 84484; 85014; 85025; 85049; 85610; 85670; 85730; 86850; 86900; 86901; 86920; 87040; 87081; 87086; 93005; 93306; 93312; 93325; 94002; 97110; 97116; 97163; 97530